=== PATIENT | male | born 1985 | race Caucasian/White ===

== ENCOUNTER 2019-05-01 14:45 | Emergency (ER) | payer OTHER ==
[~2019-05-01] VITALS: Ht 185.4 cm; Wt 136.1 kg
[2019-05-01 15:26] LABS: ABSOLUTE EOSINOPHILS 0.1 thou/uL (0.0-0.7); ABSOLUTE LYMPHOCYTES 1.5 thou/uL (0.8-5.3); ABSOLUTE MONOCYTES 0.6 thou/uL (0.0-1.2); EOSINOPHILS 2.1 %; HEMATOCRIT 44.8 % (42.0-52.0); HEMOGLOBIN 15.6 gm/dL (14.0-18.0); LYMPHOCYTES 35.8 %; MCH 30.9 pg (26.0-34.0); MCHC 34.7 g/dL (28.0-37.0); MCV 89.1 fL (80.0-100.0); MONOCYTES 14.5 %; MPV 8.8 fl. (7.2-11.1); NUCLEATED RBCS 0 /100WBC; PLATELET COUNT* 210 thou/uL (150-400); POLYS 46.6 %; RBC 5.03 mil/uL (4.50-6.00); RDW-CV 13.1 % (10.5-14.5); WBC 4.2 thou/uL (4.0-11.0)
[2019-05-01 15:37] LABS: CALCIUM 8.7 mg/dL (8.5-10.1); CREATININE 0.9 mg/dL (0.6-1.3); POTASSIUM 4.2 mmol/L (3.5-5.1)
[2019-05-01 15:42] LABS: ALBUMIN 3.9 g/dL (3.4-5.0); TOTAL BILIRUBIN 0.3 mg/dL (<0.1-1.0); TOTAL PROTEIN 7.7 g/dL (6.4-8.2)
[2019-05-01] MEDS ORDERED: VENTOLIN HFA 1818 GM INH (15:52)
[2019-05-01] MEDS ORDERED: NAPROSYN500 MG PO (15:52)
[2019-05-01] MEDS ORDERED: MEDROLDOSEPACK PO (15:52)
[2019-05-01] MEDS ORDERED: ZPAK PO (15:52)
[2019-05-01 16:16] LABS: INFLUENZA A ANTIGEN Negative (Negative); INFLUENZA B ANTIGEN Negative (Negative)
[2019-05-01 16:47] VITALS: BP 114/74
--- NOTE | 2019-05-02 11:33 | EKG ---
[place] [address] ELECTROCARDIOGRAM REPORT Name: JUSTINE LEDESMAYomi KOEHLER Room: [facility]#: [id number] Admission: 05/01/19 Attend Phys: Discharge: 05/01/19 Date of : 85 Date of Service: 05/01/19 1452 Report #: [id number] THIS REPORT FOR: //name// [facility] ED Test Date: 2019-05-01 Test Time: 14:52:06 Pat Name: ERIKA LEDESMA Department: Room: Gender: Substance Abuse Technician: : 1985 Requested By: Che Walsh Order Number: [id number] : Warren Henriquez Measurements Intervals [place] Rate: 79 P: 34 RI: 158 QRS: 29 QRSD: 88 T: 29 QT: 353 QTc: 405 Interpretive Statements Sinus rhythm No previous ECG available for comparison Electronically Signed On 05-02-2019 11:32:30 COLLECTION ANALYST by Warren Henriquez [email or web address] <ELECTRONICALLY SIGNED> By: Warren Henriquez MD, [facility] 05/02/19 1132 D: [id number] Warren Henriquez MD, FACC /EPI
== END 2019-05-01 16:48 | disposition home or self-care (01) ==
LOC: EDSEX 14:45 → M.ERS 14:45
PROVIDERS: Personal Emergency Response Attendant
DX: J20.9 Acute bronchitis, unspecified (principal); M94.0 Chondrocostal junction syndrome [Tietze]; R94.5 Abnormal results of liver function studies

== ENCOUNTER 2020-10-26 19:38 | Emergency (ER) | payer OTHER ==
[~2020-10-26] VITALS: Ht 170.2 cm; Wt 104.3 kg
[~2020-10-26 19:38] MED LIST: MEDROLDOSEPACK PO; NAPROSYN500 MG PO; VENTOLIN HFA 1818 GM INH; ZPAK PO
[2020-10-26 20:09] LABS: ABSOLUTE MONOCYTES 0.4 thou/uL (0.0-1.2); ABSOLUTE NEUTROPHILS 2.1 thou/uL (1.6-8.1); BASOPHILS 0.6 %; EOSINOPHILS 0.1 %; HEMATOCRIT 48.2 % (42.0-52.0); HEMOGLOBIN 16.8 gm/dL (14.0-18.0); LYMPHOCYTES 28.3 %; MCH 30.9 pg (26.0-34.0); MCHC 34.9 g/dL (28.0-37.0); MCV 88.5 fL (80.0-100.0); MONOCYTES 10.2 %; MPV 9.4 fl. (7.2-11.1); NUCLEATED RBCS 0 /100WBC; PLATELET COUNT* 134 thou/uL (150-400); POLYS 60.8 %; RBC 5.45 mil/uL (4.50-6.00); RDW-CV 12.2 % (10.5-14.5); WBC 3.5 thou/uL (4.0-11.0)
[2020-10-26 20:16] LABS: CALCIUM 8.7 mg/dL (8.5-10.1); CREATININE 1.2 mg/dL (0.6-1.3); POTASSIUM 3.9 mmol/L (3.5-5.1)
[2020-10-26 20:21] LABS: ALBUMIN 4.2 g/dL (3.4-5.0); TOTAL BILIRUBIN 0.5 mg/dL (<0.1-1.0); TOTAL PROTEIN 7.8 g/dL (6.4-8.2)
[2020-10-26] MEDS ORDERED: ONDANSETRON ODT4 MG PO (20:34)
[2020-10-26] MEDS ORDERED: APAP W/CODEINE1 TA2 PO (20:34)
[2020-10-26 20:48] VITALS: BP 100/54
== END 2020-10-26 20:48 | disposition home or self-care (01) ==
LOC: M.ERS 19:38
PROVIDERS: Physician Assistant
DX: U07.1 COVID-19 (principal)

== ENCOUNTER 2021-03-13 12:53 | Emergency (ER) | payer OTHER ==
[~2021-03-13] VITALS: Ht 188 cm; Wt 113.4 kg
[~2021-03-13 12:53] MED LIST changes: +APAP W/CODEINE1 TA2 PO; +ONDANSETRON ODT4 MG PO
[2021-03-13 15:43] VITALS: BP 122/88
== END 2021-03-13 15:43 | disposition home or self-care (01) ==
LOC: M.ERS 12:53
DX: J39.9 Disease of upper respiratory tract, unspecified (principal)